=== PATIENT | female | born 1955 | race Caucasian/White ===

== ENCOUNTER 2017-11-28 10:19 | Outpatient (CLI) | payer MEDICARE ==
[2017-11-28 10:36] LABS: BASOPHILS % 0.4 (0.0-1.5); EOSINOPHILS % 3.2 % (0.0-6.8); MEAN CORPUSCULAR HEMOGLOBIN 33.2 pg (28.0-34.0); MEAN CORPUSCULAR VOLUME 99.5 fl (80.0-100.0); MONOCYTES % 6.1 % (0.0-11.0); NEUTROPHILS # 2.4 # k/uL (1.4-7.7)
[2017-11-28 10:59] LABS: eGFR (African) > 60; eGFR (Non-African) > 60
== END 2017-11-28 10:22 ==
LOC: LAB 10:19
PROVIDERS: ATTEND Internal Medicine Nephrology
DX: I10 Essential (primary) hypertension (principal); E83.52 Hypercalcemia; M81.0 Age-related osteoporosis without current pathological fracture; M19.91 Primary osteoarthritis, unspecified site
CPT/HCPCS: 36415; 80053; 80061; 85025

== ENCOUNTER 2017-12-06 10:28 | Outpatient (CLI) | payer MEDICARE | END 2017-12-06 10:30 | LOC: LAB 10:28 | PROVIDERS: ATTEND Internal Medicine Nephrology | DX: R10.9 Unspecified abdominal pain (principal) | CPT/HCPCS: 36415; 82150; 83690 ==